=== PATIENT | male | born 1970 | race Caucasian/White ===

== ENCOUNTER 2020-11-20 15:30 | Inpatient (IN) | payer OTHER, SELFPAY ==
[2020-11-20] VITALS (7 sets, daily range): BP systolic 145–159; BP diastolic 84–108; PULSE 68–87; RESP 15–20; TEMP 36.4–37.1; O2SAT 96–97; BMI 27.1
--- NOTE | 2020-11-20 17:36 | USR_ITS ---
PROCEDURE INFORMATION: Exam: US Abdomen, Limited; Right Upper Quadrant Exam date and time: 11/20/2020 5:36 PM Age: 50 years old Clinical indication: Abdominal pain; Acute; Additional info: Gallstones TECHNIQUE: Imaging protocol: US abdomen. Real time ultrasound with image documentation. Limited exam focused on the right upper quadrant. COMPARISON: No relevant prior studies available. FINDINGS: Liver: Diffuse echogenic appearance of the liver consistent with hepatic steatosis. Gallbladder: Gallbladder wall thickening up to 0.9 cm with mild hyperemia and intraluminal sludge present. No shadowing gallstones appreciated. The common bile duct is borderline mildly dilated at 6 mm. Positive sonographic Swenson sign noted on exam. Common bile duct: See Gallbladder finding. Pancreas: Visualized pancreas is unremarkable. Right kidney: Normal. No mass. No hydronephrosis. US/US abdomen limited [id number] IMPRESSION: 1. Sonographic findings suspicious for acute cholecystitis. 2. Borderline mild dilation of common bile duct is 6 mm, potentially incidental but correlate with corresponding lab work. In the setting of suspected biliary obstruction could consider an MRCP to evaluate for choledocholithiasis. 3. Diffuse hepatic steatosis.
--- NOTE | 2020-11-20 17:37 | W.ED.ABDPA2 ---
HPI - Abdominal Pain General: Chief Complaint: Abdominal Pain Stated Complaint: RUQ ABD PAIN, RADIATING TO BACK Time Seen by Provider: 11/20/20 17:39 History of Present Illness: HPI narrative: This patient is a 50-year-old male who presents to the emergency department for 2 days worth of nausea and right upper quadrant abdominal pain. Patient states has been waxing and waning makes him sick to his stomach. Patient states the pain radiates to his right flank. Patient states the pain has been getting worse. Patient states he tried to have super to about 2 PM and made the pain even worse. Will do medical evaluation treat as needed MD elicited complaint: abdominal pain Pertinent past history: none Onset (ago): day(s) Pain Consistency: constant Location: RUQ Severity: moderate Quality: aching Radiation: RUQ and R flank Migration to: no migration Exacerbating factors: eating Relieving factors: nothing Associated Symptoms: Reports nausea; Denies chills, dysuria, fever(s) and vomiting Review of Systems General: Reports: 10 or more systems reviewed and unremarkable except in HPI and below Const: Denies: fever(s), chills, body aches or fatigue Eyes: Denies: change in vision or blurry vision ENMT: Denies: throat pain, hoarseness or mouth pain Card: Denies: chest pain, palpitations, irregular heart rhythm, edema, swelling of feet/ankles or lightheadedness Resp: Denies: dyspnea, productive cough, non-productive cough, wheezing or pain on inspiration GI: Reports: abdominal pain and nausea; Denies: vomiting : Denies: flank pain, dysuria, urinary frequency, urinary urgency or urinary hesitancy Musc: Denies: neck pain, back pain, extremity pain, extremity swelling, joint pain, joint swelling, joint redness, joint warmth or limited range of motion Skin/Breast: Denies: rash, pruritus, erythema or skin tenderness Neuro: Denies: headache(s), numbness in extremities or weakness in extremities Psych: Denies: anxiety or depression Physical Exam Const: COMMON NORMALS: no acute distress, average body habitus, patient oriented x3, no limitations, healthy appearing, alert and well nourished HENMT: COMMON NORMALS: normocephalic, atraumatic, hearing grossly normal bilaterally, external ears normal, EAC's normal, TM's normal bilaterally, Normal external nose present, Normal nasal mucous membranes and turbinates present, moist oral mucous membranes, oropharynx normal, dentition normal and gingiva normal HEAD & SCALP: normocephalic and atraumatic NOSE: Normal external nose present and Normal nasal mucous membranes and turbinates present EXTERNAL EAR: Yes external ears normal EXTERNAL AUDITORY CANAL: EAC's normal TYMPANIC MEMBRANE: TM's normal bilaterally Neck/C-Spine: COMMON NORMALS: full ROM, no lymphadenopathy, supple, no meningeal signs, no JVD, Thyroid normal and No carotid bruits THYROID: Thyroid normal Chest: COMMONS NORMALS: normal inspection of the chest, normal palpation of entire chest wall, normal inspection of the breasts and normal palpation of the breasts Breast/axilla inspection: Yes normal inspection of the breasts BREAST/AXILLA PALPATION: Yes normal palpation of the breasts Resp: COMMON NORMALS: normal respiratory effort, No retractions, No use of accessory muscles, clear to auscultation bilaterally and percussion normal AUSCULTATION: clear to auscultation bilaterally PERCUSSION: percussion normal Cardio: COMMON NORMALS: no JVD, regular rate, regular rhythm, S1 normal heart sound present, S2 normal heart sound present, No gallops present (Cardio), No clicks present (Cardio), No murmurs present (Cardio), No rub (Cardio) and Peripheral pulses 2+ throughout RATE: regular rate RHYTHM: regular rhythm HEART SOUNDS: S1 normal heart sound present and S2 normal heart sound present PERIPHERAL PULSES: Peripheral pulses 2+ throughout GI: COMMON NORMALS: Normal to inspection, nondistended, normoactive bowel sounds present, Soft to palpation, No hepatosplenomegaly present, no masses and no bruits PALPATION: Yes Soft to palpation, Yes Tenderness to palpation present (GI) Details: RUQ and Yes No hepatosplenomegaly present : COMMON NORMALS: Yes no CVA tenderness BLADDER/KIDNEY EXAM: Yes no CVA tenderness Back/Pelvis: COMMON NORMALS: no CVA tenderness, thoracic and lumbar spine normal to inspection, no thoracic nor lumbar tenderness, thoraco-lumbar ROM normal and straight leg raise negative bilaterally Extremity: COMMON NORMALS: normal to inspection, full ROM, capillary refill normal, no joint enlargement, no clubbing, cyanosis or edema, no calf tenderness and no pedal edema Neuro: COMMON NORMALS: patient oriented x3 SENSORIUM/ORIENTATION: Yes alert MENINGEAL SIGNS: Yes no meningeal signs Course Reevaluation(s): Reevaluation #1: I did discuss at length with patient about findings. And concerns. 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 States he is never had any issues with pancreatitis in the past. Patient is agreeable for admission Time: 20:55 Consultations: Consultation #1: I did discuss at length with Dr. Howe general surgeon. We did review patient's ultrasound. He believes this is related to pancreatitis not related to any acute cholecystitis. We will see patient as consult Time: 20:55 Consultation #2: I did discuss at length with hospitalist Dr. Jenkins she is agreed to accept the patient for admission. She will see patient write additional orders Time: 20:55 Vital Signs: Vital signs: Vital Signs Temperature 98.7 F 11/20/20 16:12 Pulse Rate 68 11/20/20 19:53 Respiratory Rate 15 11/20/20 19:53 Blood Pressure 149/84 11/20/20 19:53 Pulse Oximetry 97 11/20/20 19:53 MDM - Abdominal Pain MDM Narrative: Medical decision making narrative: This patient is a 50-year-old male who presents to the emergency department for 2 days worth of nausea and right upper quadrant abdominal pain. Patient states has been waxing and waning makes him sick to his stomach. Patient states the pain radiates to his right flank. Patient states the pain has been getting worse. Patient states he tried to have super to about 2 PM and made the pain even worse. I did discuss at length with patient about findings. And concerns. 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 States he is never had any issues with pancreatitis in the past. Patient is agreeable for admission I did discuss at length with Dr. Howe general surgeon. We did review patient's ultrasound. He believes this is related to pancreatitis not related to any acute cholecystitis. We will see patient as consult I did discuss at length with hospitalist Dr. Jenkins she is agreed to accept the patient for admission. She will see patient write additional orders Lab Data: Labs: Lab Results 11/20/20 11/20/20 11/20/20 Range/Units 18:02 18:02 19:06 WBC 11.3 H (4.0-10.0) 10^3/ uL RBC 5.35 H (4.1-5.3) 10^6/u L Hgb 15.6 (11.7-16.6) g/dL Hct 46.0 (42.0-52.0) % MCV 86.0 (80-94) fL MCH 29.2 (28.0-34.0) pg MCHC 33.9 (30.0-36.0) g/dL RDW 12.3 (12.1-15.1) % Plt Count 197 (130-400) 10^3/c mm MPV 11.3 H (7.4-10.4) fL Neut % (Auto) 82.2 % Lymph % (Auto) 7.7 % [place] % (Auto) 9.1 % Eos % (Auto) 0.4 % Baso % (Auto) 0.3 % Neut # (Auto) 9.26 H (1.8-7.7) 10^3/u L Lymph # (Auto) 0.9 (0.8-4.8) 10^3/u L [place] # (Auto) 1.0 H (0.2-0.9) 10^3/u L Eos # (Auto) 0.1 (0.0-0.8) 10^3/u L Baso # (Auto) 0.0 (0.0-0.1) 10^3/u L Nucleated RBC % (a uto) 0 % Nucleated RBCs # 0.0 /100WBC Sodium Cancelled 138 Potassium Cancelled 3.7 Chloride Cancelled 101 Carbon Dioxide Cancelled 28 Anion Gap Cancelled 12.7 BUN Cancelled 11 Creatinine Cancelled 0.6 L GFR Calculation Cancelled 143.2 H Glucose Cancelled 116 H Calculated Osmolal ity Cancelled 286 Calcium Cancelled 8.0 L Total Bilirubin Cancelled 3.1 H AST Cancelled 63 H ALT Cancelled 87 H Alkaline Phosphata se Cancelled 74 Total Protein Cancelled 6.3 L Albumin Cancelled 4.2 Globulin Cancelled 2.1 Lipase Cancelled > 3159 H Urine Color (Yellow) Urine Appearance (CLEAR) Urine pH (5-7) Ur Specific Gravit y (1.005-1.030) Urine Protein (Negative) Urine Glucose (UA) (Normal) Urine Ketones (Negative) Urine Blood (Negative) Urine Nitrate (Negative) Urine Bilirubin (Negative) Urine Urobilinogen (Negative) mg/dL Ur Leukocyte Kendra ase (Negative) Urine RBC (0-2) /hpf Urine WBC (0-5) /hpf Ur Squamous Epith Cells (0-5) /hpf Amorphous Sediment Urine Bacteria (NONE) /hpf 11/20/20 Range/Units 19:57 WBC (4.0-10.0) 10^3/ uL RBC (4.1-5.3) 10^6/u L Hgb (11.7-16.6) g/dL Hct (42.0-52.0) % MCV (80-94) fL MCH (28.0-34.0) pg MCHC (30.0-36.0) g/dL RDW (12.1-15.1) % Plt Count (130-400) 10^3/c mm MPV (7.4-10.4) fL Neut % (Auto) % Lymph % (Auto) % [place] % (Auto) % Eos % (Auto) % Baso % (Auto) % Neut # (Auto) (1.8-7.7) 10^3/u L Lymph # (Auto) (0.8-4.8) 10^3/u L [place] # (Auto) (0.2-0.9) 10^3/u L Eos # (Auto) (0.0-0.8) 10^3/u L Baso # (Auto) (0.0-0.1) 10^3/u L Nucleated RBC % (a uto) % Nucleated RBCs # /100WBC Sodium Potassium Chloride Carbon Dioxide Anion Gap BUN Creatinine GFR Calculation Glucose Calculated Osmolal ity Calcium Total Bilirubin AST ALT Alkaline Phosphata se Total Protein Albumin Globulin Lipase Urine Color Yolanda (Yellow) Urine Appearance Clear (CLEAR) Urine pH 5 (5-7) Ur Specific Gravit y 1.015 (1.005-1.030) Urine Protein Trace (Negative) Urine Glucose (UA) Trace H (Normal) Urine Ketones 1+ H (Negative) Urine Blood 2+ H (Negative) Urine Nitrate Negative (Negative) Urine Bilirubin 2+ H (Negative) Urine Urobilinogen 8 H (Negative) mg/dL Ur Leukocyte Kendra ase Negative (Negative) Urine RBC 0-4 H (0-2) /hpf Urine WBC None (0-5) /hpf Ur Squamous Epith Cells None (0-5) /hpf Amorphous Sediment Not Reportable Urine Bacteria None (NONE) /hpf Imaging Data ^: US: Attestation: I personally reviewed and interpreted this imaging study as follows: Radiologist's impression: MPRESSION: 1. Sonographic findings suspicious for acute cholecystitis. 2. Borderline mild dilation of common bile duct is 6 mm, potentially incidental but correlate with corresponding lab work. In the setting of suspected biliary obstruction could consider an MRCP to evaluate for choledocholithiasis. 3. Diffuse hepatic steatosis. Discharge Plan Discharge Patient Disposition: Admitted As Inpatient Clinical Impression: Acute pancreatitis, Right upper quadrant abdominal pain, History of alcohol abuse Condition: Stable Prescriptions: No Action One A Day Vitamin 1 tab PO DAILY RF: 0 Coding Level of Care Code ED Election Supervisor for Chg Fwd Exam Comprehensive
--- NOTE | 2020-11-20 17:45 | PC.NURSE ---
Patient reports pressure to upper abdomen and chest that started at 0300 on Thursday. Reports presence of nausea and vomiting. Reports spasming occurring about every 30 minutes. Rates pain as a 10 in the numeric pain scale.
[2020-11-20] MEDS: ketorolac 30 mg/mL INJ 15 MG IVP (18:09)
[2020-11-20] MEDS: ondansetron 2 mg/ML SDV 2 mL 4 MG IVP (18:09)
[2020-11-20] MEDS: sodium chloride 0.9% 1,000 ML 999 ML IV ×2 (18:10→21:34)
[2020-11-20 18:11] LABS: Basophils % 0.3 %; Eosinophils # 0.1 10^3/uL (0.0-0.8); Eosinophils % 0.4 %; Hemoglobin 15.6 g/dL (11.7-16.6); Lymphocytes # 0.9 10^3/uL (0.8-4.8); Lymphocytes % 7.7 %; Mean Corpuscular HGB Conc 33.9 g/dL (30.0-36.0); Mean Corpuscular Hemoglobin 29.2 pg (28.0-34.0); Mean Platelet Volume 11.3 fL (7.4-10.4); Monocytes % 9.1 %; Neutrophils # 9.26 10^3/uL (1.8-7.7); Neutrophils % 82.2 %; Nucleated Red Blood Cells % 0 %; Platelet Count 197 10^3/cmm (130-400); Red Blood Count 5.35 10^6/uL (4.1-5.3); Red Cell Distribution Width 12.3 % (12.1-15.1); White Blood Count 11.3 10^3/uL (4.0-10.0)
[2020-11-20 20:06] LABS: Glucose Urine UA Trace (Normal); Ketones Urine 1+ (Negative); Protein Urine Trace (Negative); Specific Gravity, Urine 1.015 (1.005-1.030); Urine Appearance Clear (CLEAR); Urine Color Amber (Yellow); pH Urine 5 (5-7)
[2020-11-20 20:07] LABS: Add Urine Microscopic? YES; Bilirubin Urine 2+ (Negative); Blood Urine 2+ (Negative); Leukocyte Esterase Urine Negative (Negative); Nitrate Urine Negative (Negative); Urobilinogen Urine 8 mg/dL (Negative)
[2020-11-20 20:09] LABS: Add Urine Culture? No; RBC Urine 0-4 /hpf (0-2)
[2020-11-20 20:28] LABS: Alanine Aminotransferase 87 U/L (0-41); Albumin Level 4.2 g/dL (3.5-5.2); Alkaline Phosphatase 74 IU/L (40-130); Anion Gap 12.7 (5-19); Aspartate Amino Transferase 63 U/L (0-40); Blood Urea Nitrogen 11 mg/dL (6-20); Carbon Dioxide 28 mmol/L (22-29); Chloride 101 mmol/L (98-107); Globulin 2.1 g/dL (1.3-4.6); Glomerular Filtration Rate 143.2 mL/min (90-130); Glucose 116 mg/dL (65-115); Osmolality Calculated 286 mOsm/kg (285-295); Potassium 3.7 mmol/L (3.5-5.1); Sodium 138 mmol/L (136-145); Total Bilirubin 3.1 mg/dL (0.15-1.2); Total Protein 6.3 g/dL (6.6-8.7)
[2020-11-20 21:30] LABS: Lactic Sepsis W/Reflex 0.5 mmol/L (0.5-2.2)
[2020-11-20] MEDS: morphine 4 mg/mL SDV 1 mL IVP (21:34)
[2020-11-20 21:37] LABS: Alcohol Level < 10 mg/dL (0-10)
[2020-11-20] MEDS: piperacillin-tazobactam 3.375 GM in sodium chloride 0.9% (plus) 50 ML IV (21:38)
--- NOTE | 2020-11-20 22:08 | PM.HP ---
Providers/Chief Complaint Admitting Physician: Cathryn Harrison MD Primary Care Provider: None Chief Complaint: RUQ ABD PAIN, RADIATING TO BACK History of Present Illness Mic Mueller is a 50 year old male who presented to the emergency room with chief complaint of upper abdomen and lower chest pain. He woke up around 3 AM on Thursday morning with a pressure sensation in the center of his abdomen. He had some nausea and an episode of vomiting associated with this. He was able to go back to sleep and went to work later that day though his belly continued to bother him. When he was at work he had some significant cramping in his central abdomen that was severe and radiated into his back. He again had some nausea and vomiting. Symptoms seemed worse after food even though he tried to eat things like oatmeal, bread and later followed by soup and water. He began having episodes of abdominal cramping that were even more severe and began to go up into his lower rib cage area. When these episodes hit he was unable to stand or even walk due to the severity of the pain. Symptoms would last 20 to 30 minutes at a time and then he would feel okay for a while. 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 With the recurrence of his symptoms he did eventually come in for evaluation. He has not had any vomiting today but has continued to be nauseated. Denies any fever. On arrival to the emergency room [place], heart rate in the 80s and blood pressure 140s over 100s. Laboratory studies revealed an elevated lipase and elevated liver enzymes. Abdominal ultrasound was done revealing sonographic findings suspicious for acute cholecystitis. Borderline mild dilatation of the common bile duct at 6 mm was noted as was diffuse hepatic steatosis. No shadowing gallstones were appreciated. He received fluids and pain medications in the emergency room and is being admitted for further treatment. He has never had an episode of known cholecystitis or pancreatitis nor symptoms such as he had today before. His father was an alcoholic but no known family history of pancreatitis. He takes some vitamins and occasionally NSAIDs but no chronic prescription medications. He does drink usually 3-4 times a week up to a sixpack of beer. Last drink was Thursday when he had 2 beers per his description. Review of Systems Const: Denies: fever(s), chills or change in appetite Eyes: Denies: change in vision ENMT: Denies: throat pain or nasal congestion Card: Reports: chest pain (with episodes of abdominal pain); Denies: palpitations Resp: Reports: dyspnea (with abdominal pain); Denies: productive cough or non-productive cough GI: Reports: abdominal pain, nausea and vomiting; Denies: diarrhea, constipation or melena : Denies: difficulty urinating Musc: Reports: back pain (with abd pain) Skin/Breast: Denies: rash or sores Neuro: Denies: headache(s), lack of coordination or difficulty communicating thoughts Psych: Denies: anxiety or depression Jean-Claude/Lymph: Denies: easy bruising or easy bleeding Medications/Allergies Home Medications Medication Instructions Recorded Confirmed Last Taken Type One A Day Vitamin 1 tab PO DAILY 11/20/20 11/20/20 11/20/20 History Allergies Allergy/AdvReac Type Severity Reaction Status Date / Time No Known Allergies Allergy Unverified 11/20/20 18:32 PFSH Acute PFSH: Medical History (Updated 11/20/20 @ 23:03 by Cathryn Harrison MD) Former smoker History of lower leg fracture Surgical History (Updated 11/20/20 @ 22:13 by Cathryn Harrison MD) No pertinent past surgical history Family History (Updated 11/20/20 @ 22:28 by Cathryn Harrison MD) Father Sickle cell trait Alcoholism Social History (Updated 11/21/20 @ 00:04 by Cathryn Harrison MD) Smoking and tobacco status: former smoker Alcohol intake: current Alcohol intake frequency: few times a week Alcohol use comment: 4-6 beers, up to 3-4 times per week Substance/Drug Use: never Current occupational status: employed 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 Vitals/I&O/Wt Last Vital Signs Temp 98.7 F 11/20/20 16:12 Pulse 68 11/20/20 19:53 Resp 16 11/20/20 21:34 BP 149/84 11/20/20 19:53 Pulse Ox 96 11/20/20 21:34 11/20/20 11/20/20 11/20/20 06:59 14:59 22:59 Intake Total 1000 / 1000 Balance 1000 / 1000 Weight last 48 hrs Weight 90.718 kg Physical Exam Narrative: EXAM NARRATIVE: Constitutional: Awake and alert, cooperative HEENT: Normocephalic, atraumatic, pupils are equally reactive, no nystagmus, dry membranes Neck: Supple Respiratory: Clear to auscultation bilaterally Cardiovascular: Regular rhythm, no murmurs, 2+ pulses Abdomen: Soft, epigastric and bilateral upper quadrant tenderness without any rebound or guarding, positive bowel sounds Extremities: No pitting edema Skin: Evidence of sun exposure but no acute rashes or bruises noted Neuro: Speech clear, face symmetric, moves all extremities, no tremors or abnormal movements Psych: Normal affect, oriented x3 Data : 11/20/20 18:02 11/20/20 19:06 Micro: Microbiology 11/20/20 21:07 Blood Culture - Preliminary Blood SPECIMEN COLLECTED 11/20/20 21:05 Blood Culture - Preliminary Blood SPECIMEN COLLECTED Other data: Laboratory Results WBC 11.3 10^3/uL (4.0-10.0) H 11/20/20 18:02 RBC 5.35 10^6/uL (4.1-5.3) H 11/20/20 18:02 Hgb 15.6 g/dL (11.7-16.6) 11/20/20 18:02 Hct 46.0 % (42.0-52.0) 11/20/20 18:02 MCV 86.0 fL (80-94) 11/20/20 18:02 MCH 29.2 pg (28.0-34.0) 11/20/20 18:02 MCHC 33.9 g/dL (30.0-36.0) 11/20/20 18:02 RDW 12.3 % (12.1-15.1) 11/20/20 18:02 Plt Count 197 10^3/cmm (130-400) 11/20/20 18:02 MPV 11.3 fL (7.4-10.4) H 11/20/20 18:02 Neut % (Auto) 82.2 % 11/20/20 18:02 Lymph % (Auto) 7.7 % 11/20/20 18:02 [place] % (Auto) 9.1 % 11/20/20 18:02 Eos % (Auto) 0.4 % 11/20/20 18:02 Baso % (Auto) 0.3 % 11/20/20 18:02 Neut # (Auto) 9.26 10^3/uL (1.8-7.7) H 11/20/20 18:02 Lymph # (Auto) 0.9 10^3/uL (0.8-4.8) 11/20/20 18:02 [place] # (Auto) 1.0 10^3/uL (0.2-0.9) H 11/20/20 18:02 Eos # (Auto) 0.1 10^3/uL (0.0-0.8) 11/20/20 18:02 Baso # (Auto) 0.0 10^3/uL (0.0-0.1) 11/20/20 18:02 Nucleated RBC % (auto) 0 % 11/20/20 18:02 Nucleated RBCs # 0.0 /100WBC 11/20/20 18:02 Sodium 138 mmol/L (136-145) 11/20/20 19:06 Potassium 3.7 mmol/L (3.5-5.1) 11/20/20 19:06 Chloride 101 mmol/L (98-107) 11/20/20 19:06 Carbon Dioxide 28 mmol/L (22-29) 11/20/20 19:06 Anion Gap 12.7 (5-19) 11/20/20 19:06 BUN 11 mg/dL (6-20) 11/20/20 19:06 Creatinine 0.6 mg/dL (0.7-1.2) L 11/20/20 19:06 GFR Calculation 143.2 mL/min (90-130) H 11/20/20 19:06 Glucose 116 mg/dL (65-115) H 11/20/20 19:06 Calculated Osmolality 286 mOsm/kg (285-295) 11/20/20 19:06 Lactic Acid 0.5 mmol/L (0.5-2.2) 11/20/20 21:05 Calcium 8.0 mg/dL (8.5-10.5) L 11/20/20 19:06 Total Bilirubin 3.1 mg/dL (0.15-1.2) H 11/20/20 19:06 AST 63 U/L (0-40) H 11/20/20 19:06 ALT 87 U/L (0-41) H 11/20/20 19:06 Alkaline Phosphatase 74 IU/L (40-130) 11/20/20 19:06 Total Protein 6.3 g/dL (6.6-8.7) L 11/20/20 19:06 Albumin 4.2 g/dL (3.5-5.2) 11/20/20 19:06 Globulin 2.1 g/dL (1.3-4.6) 11/20/20 19:06 Lipase > 3159 U/L (13-60) H 11/20/20 19:06 Urine Color Yolanda (Yellow) 11/20/20 19:57 Urine Appearance Clear (CLEAR) 11/20/20 19:57 Urine pH 5 (5-7) 11/20/20 19:57 Ur Specific [place] 1.015 (1.005-1.030) 11/20/20 19:57 Urine Protein Trace (Negative) 11/20/20 19:57 Urine Glucose (UA) Trace (Normal) H 11/20/20 19:57 Urine Ketones 1+ (Negative) H 11/20/20 19:57 Urine Blood 2+ (Negative) H 11/20/20 19:57 Urine Nitrate Negative (Negative) 11/20/20 19:57 Urine Bilirubin 2+ (Negative) H 11/20/20 19:57 Urine Urobilinogen 8 mg/dL (Negative) H 11/20/20 19:57 Ur Leukocyte Esterase Negative (Negative) 11/20/20 19:57 Urine RBC 0-4 /hpf (0-2) H 11/20/20 19:57 Urine WBC None /hpf (0-5) 11/20/20 19:57 Ur Squamous Epith Cells None /hpf (0-5) 11/20/20 19:57 Amorphous Sediment Not Reportable 11/20/20 19:57 Urine Bacteria None /hpf (NONE) 11/20/20 19:57 Ethyl Alcohol < 10 mg/dL (0-10) 11/20/20 21:05 Impressions Abdomen Ultrasound 11/20/20 17:36 IMPRESSION: 1. Sonographic findings suspicious for acute cholecystitis. 2. Borderline mild dilation of common bile duct is 6 mm, potentially incidental but correlate with corresponding lab work. In the setting of suspected biliary obstruction could consider an MRCP to evaluate for choledocholithiasis. 3. Diffuse hepatic steatosis. A&P Assessment and plan (1) Acute pancreatitis: Etiology most likely acute cholecystitis with potential early obstructive process or chronic alcohol use based on currently available information. Peptic ulcer disease, medication/drug effect, infection, malignancy, acute vascular process, among others, currently less likely . Status: Acute (2) Acute cholecystitis: Without evidence of definitively obstructing stones on ultrasuond, though borderline common bile duct diameter noted Status: Acute Additional A&P Information No prior history of pancreatitis or gallbladder colic symptoms described. Drinks beer several times a week but does not describe more excessive use. Inpatient admission IV fluids Check lactic acid, blood cultures and alcohol level Keep n.p.o. tonight except for sips and chips this evening Recheck LFTs, white blood count, lactic acid and lipase in the morning If trend upward consider further diagnostic evaluation Monitor for worsening abdominal symptoms Dr. Howe was consulted from the emergency room We will give banana bag x1 Monitor for any evidence of alcohol withdrawal though patient denies history of such Check hemoglobin A1c Protonix Pain control Laxative therapy Lovenox for DVT prophylaxis Discussed with patient findings, concerns and plans and he was given an opportunity to ask questions Does not have provider he can follow-up with for hospital follow-up locally; will have social and human services assistant see Full code Attestations Medical Necessity Statement*: Anticipated stay greater than two midnights in this patient presenting with his first episode of pancreatitis as well as cholecystitis. Significant elevation in lipase as well as elevation in bilirubin. Requiring IV fluids, serial labs and monitoring for progressive symptoms. Plans as indicated. Coding Level of Care Code Acute Hand Method Lasting Machine Operator for Kiesha Chan Diagnoses Acute pancreatitis K85.90 Acute cholecystitis K81.0
[2020-11-21] VITALS (11 sets, daily range): BP systolic 126–156; BP diastolic 70–86; PULSE 66–75; RESP 16–18; TEMP 36.6–37.2; O2SAT 93–97
[2020-11-21] MEDS: pantoprazole 40 mg SDV IVP ×2 (01:00→10:50)
[2020-11-21] MEDS: sodium chlor 0.9% + KCl 20 mEq 20 MEQ/1,000 ML BAG 150 MEQ IV ×3 (01:00→18:28)
[2020-11-21] MEDS: enoxaparin 40 mg/0.4 mL Syringe SUBCUT (01:00)
[2020-11-21] MEDS: folic acid 1 MG, multivitamin inj 10 ML, thiamine 100 MG in sodium chloride 0.9% 1,000 ML 252.8 MG IV (01:43)
[2020-11-21] MEDS: acetaminophen 325 mg Tablet 650 MG PO ×2 (01:58→18:38)
[2020-11-21] MEDS: morphine 4 mg/mL SDV 1 mL IVP ×5 (02:20→20:50)
[2020-11-21 06:13] LABS: Basophils % 0.4 %; Eosinophils # 0.1 10^3/uL (0.0-0.8); Eosinophils % 0.8 %; Hematocrit 37.7 % (42.0-52.0); Hemoglobin 12.8 g/dL (11.7-16.6); Lymphocytes # 1.1 10^3/uL (0.8-4.8); Lymphocytes % 12.5 %; Mean Corpuscular Volume 85.5 fL (80-94); Monocytes # 0.8 10^3/uL (0.2-0.9); Monocytes % 9.5 %; Neutrophils # 6.42 10^3/uL (1.8-7.7); Neutrophils % 76.6 %; Nucleated Red Blood Cells % 0 %; Platelet Count 147 10^3/cmm (130-400); Red Blood Count 4.41 10^6/uL (4.1-5.3); Red Cell Distribution Width 12.1 % (12.1-15.1); White Blood Count 8.4 10^3/uL (4.0-10.0)
[2020-11-21 06:24] LABS: INR 1.11 (0.8-1.2)
[2020-11-21 06:28] LABS: Lactate (Lactic Acid level) 0.5 mmol/L (0.5-2.2)
[2020-11-21 06:29] LABS: Estmated Average Glucose 91; Hemoglobin A1C 4.8 % (4.0-6.0)
[2020-11-21 06:31] LABS: Alanine Aminotransferase 98 U/L (0-41); Albumin Level 3.7 g/dL (3.5-5.2); Alkaline Phosphatase 70 IU/L (40-130); Anion Gap 11.9 (5-19); Aspartate Amino Transferase 64 U/L (0-40); Blood Urea Nitrogen 8 mg/dL (6-20); Calcium 7.6 mg/dL (8.5-10.5); Carbon Dioxide 25 mmol/L (22-29); Chloride 108 mmol/L (98-107); Chol HDL Ratio 3.23 mg/dL (1.0-5.00); Cholesterol 155 mg/dL (0-200); Glomerular Filtration Rate 176.7 mL/min (90-130); Glucose 98 mg/dL (65-115); HDL Cholesterol 48 mg/dL (60-100); LDL Cholesterol Calculated 93 mg/dL (50-129); LDL HDL Ratio 1.94 RATIO (0.00-3.22); Osmolality Calculated 290 mOsm/kg (285-295); Potassium 3.9 mmol/L (3.5-5.1); Sodium 141 mmol/L (136-145); Total Bilirubin 3.9 mg/dL (0.15-1.2); Total Protein 5.7 g/dL (6.6-8.7); Triglycerides 68 mg/dL (0-150)
[2020-11-21 06:32] LABS: Magnesium 2.1 mg/dL (1.7-2.3); Phosphorus 2.9 mg/dL (2.5-4.5)
[2020-11-21] MEDS: docusate sodium 100 mg Capsule PO ×2 (08:17→18:27)
--- NOTE | 2020-11-21 10:53 | MR_ITS ---
WS: [id number] MRCP (MAGNETIC RESONANCE CHOLANGIOPANCREATOGRAPHY) HISTORY: pancreatitis, cholecystitis, possible choledocholithiasis COMPARISON: Ultrasound 11/20/2020 TECHNIQUE: Multiple sequences are performed to evaluate the intra and extrahepatic ducts. Very slight dilatation of the common bile duct to 8 mm. CBD is dilated but no obstructing stone or pa ncreatic head mass identified. The gallbladder is normally distended. There is a small amount of flui d and mild wall thickening involving the gallbladder. No inflammation around the pancreas. Pancreatic duct is normal at 2 mm. There is a small amount of increased fluid surrounding the duodenal C-loop a nd extending posterior to the pancreas. No pleural effusion. MR/MR MRCP [id number] IMPRESSION: 1. Mildly dilated common bile duct. No choledocholithiasis or pancreatic head mass identified. 2. Mild gallbladder wall thickening and a small amount of edema adjacent to th e gallbladder and the duodenum. Consider acute cholecystitis as a possible etio logy. No intrahepatic duct dilatation.
--- NOTE | 2020-11-21 11:06 | P.PN_ITS ---
Subjective Subjective: Interval history: He is doing slightly better. Still having epigastric pain, but received pain medication and now is having some relief. Denies any vomiting. Vitals/I&O/Wt Last Vital Signs Temp 98.4 F 11/21/20 07:29 Pulse 74 11/21/20 07:29 Resp 18 11/21/20 10:14 BP 126/70 11/21/20 07:29 Pulse Ox 94 11/21/20 07:29 11/20/20 11/21/20 11/21/20 22:59 06:59 14:59 Intake Total 1000 / 1000 2061.2 / 3061.2 1700 / 1700 Output Total 650 / 650 Balance 1000 / 1000 2061.2 / 3061.2 1050 / 1050 Weight last 48 hrs Weight 90.718 kg Physical Exam Const: COMMON NORMALS: no acute distress and patient oriented x3 HENMT: COMMON NORMALS: oropharynx normal Neck/C-Spine: COMMON NORMALS: no JVD Resp: COMMON NORMALS: normal respiratory effort and clear to auscultation bilaterally AUSCULTATION: clear to auscultation bilaterally Cardio: COMMON NORMALS: no JVD, regular rhythm, S1 normal heart sound present, S2 normal heart sound present and No murmurs present (Cardio) RHYTHM: regular rhythm HEART SOUNDS: S1 normal heart sound present and S2 normal heart sound present GI: COMMON NORMALS: Normal to inspection, nondistended, normoactive bowel sounds present and Soft to palpation PALPATION: Yes Soft to palpation and Yes Tenderness to palpation present (GI) (epigastric) Extremity: COMMON NORMALS: no joint enlargement and no pedal edema Neuro: COMMON NORMALS: patient oriented x3 and moves all extremities Skin: COMMON NORMALS: no rashes or lesions noted GENERAL SKIN EXAM: no rashes or lesions noted Data : 11/21/20 05:48 11/21/20 05:48 Micro: Microbiology 11/20/20 21:07 Blood Culture - Preliminary Blood SPECIMEN COLLECTED 11/20/20 21:05 Blood Culture - Preliminary Blood SPECIMEN COLLECTED A&P Assessment and plan (1) Acute pancreatitis: With borderline dilation of CBD 6 mm, glucose tests could not be excluded. Discussed with him options for additional evaluation. Discussed risks of gallstone pancreatitis, choledocholithiasis. He is agreeable for additional as sessment by MRCP. Ordered. Discussed alternatively possibly alcohol induced pancreatitis. Given he still having epigastric pain, continue bowel rest for now. IV hydration. PPI. Status: Acute (2) Acute cholecystitis: Additional assessment by MRCP as above. Rocephin. Bowel rest. Thickened GB wall. Sludge. Consideration of definitive treatment and timing discussed. We will touch base with surgery with regards to plans. Status: Acute Attestations Medical Necessity Statement*: Continue admission for assessment of management of acute pancreatitis, acute cholecystitis. 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
[2020-11-21] MEDS: cefTRIAXone 1,000 MG in sodium chloride 0.9% (plus) 50 ML 100 MG IV (16:18)
--- NOTE | 2020-11-21 18:05 | P.CONIM_ITS ---
Providers/Reason For Consult Consulting Physician/Specialty*: General Surgery Dr. Howe Reason for Consult*: Cholecystitis Attending Physician: Christ Murphy History of Present Illness History of Present Illness Mic Mueller is a 50 year old male who presented to the ER yesterday evening with complaints of upper abdominal and lower chest pain. 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 Patient had nausea but denies any vomiting. Over the course of the next 24 hours his symptoms progressively got worse. He denies any constipation or diarrhea. No similar episodes in the past. No fevers or chills. He was noted to have elevated lipase and ultrasound findings concerning for acute cholecystitis. Patient states that he used to be heavy drinker when he was younger but now he drinks a sixpack 3-4 times a week. Review of Systems General: Reports: 10 or more systems reviewed and unremarkable except in HPI and below Meds/Allergies Home Medications and Allergies Home Medications Medication Instructions Recorded Confirmed Last Taken Type One A Day Vitamin 1 tab PO DAILY 11/20/20 11/20/20 11/20/20 History Allergies Allergy/AdvReac Type Severity Reaction Status Date / Time No Known Allergies Allergy Unverified 11/20/20 18:32 Current Medications Current Medications Generic Name Dose Route Start Last Admin Trade Name Freq PRN Reason Stop Dose Admin Acetaminophen 650 mg 11/21/20 00:16 11/21/20 01:58 Acetaminophen 325 Mg Tablet PO 650 mg Q8H PRN Administration Mild/Mod Pain Or Temp >/= 101 Docusate Sodium 100 mg 11/21/20 09:00 11/21/20 08:17 Docusate Sodium 100 Mg Capsule PO 100 mg BID LIV Administration Enoxaparin Sodium 40 mg 11/21/20 00:30 11/21/20 01:00 Enoxaparin 40 Mg/0.4 Ml Syringe SUBCUT 40 mg Q24H LIV Administration Potassium Chloride/Sodium Chloride 20 meq in 1,000 mls @ 150 mls/hr 11/21/20 00:30 11/21/20 10:50 Sodium Chlor 0.9% + Kcl 20 Meq IV 150 mls/hr .Q6H40M LIV Administration Ceftriaxone Sodium 1,000 mg/ 50 mls @ 100 mls/hr 11/21/20 11:15 11/21/20 16:18 Sodium Chloride IV 100 mls/hr Q24H LIV Administration Protocol Morphine Sulfate 4 mg 11/20/20 20:57 11/21/20 16:22 Morphine 4 Mg/Ml Sdv 1 Ml IVP 4 mg Q4H PRN Administration SEVERE PAIN Pantoprazole Sodium 40 mg 11/21/20 00:15 11/21/20 10:50 Pantoprazole 40 Mg Sdv IVP 40 mg Q12H LIV Administration PFSH Acute PFSH: Medical History History of lower leg fracture Surgical History No pertinent past surgical history Family History Father Sickle cell trait Alcoholism Social History Smoking and tobacco status: former smoker Alcohol intake: current Alcohol intake frequency: few times a week Alcohol use comment: 4-6 beers, up to 3-4 times per week Substance/Drug Use: never Current occupational status: employed 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 Vitals/I&O/Wt Last Vital Signs Temp 99.0 F 11/21/20 15:30 Pulse 72 11/21/20 15:30 Resp 16 11/21/20 16:22 BP 145/85 11/21/20 15:30 Pulse Ox 94 11/21/20 15:30 11/21/20 11/21/20 11/21/20 06:59 14:59 22:59 Intake Total 2061.2 / 3061.2 1700 / 1730 30 / 1730 Output Total 650 / 650 Balance 2061.2 / 3061.2 1050 / 1080 30 / 1080 Weight last 48 hrs Weight 200 lb Physical Exam Narrative: EXAM NARRATIVE: HEENT: Normocephalic Eye: Sclera /conjunctiva normal Abdomen: Soft to palpation, mildly tender in the epigastric region, no guarding or rigidity Neurological: Oriented to place person and time Skin: Intact, no lesions appreciated on gross exam Data Micro: Micro: Microbiology 11/20/20 21:07 Blood Culture - Pr eliminary Blood SPECIMEN KAREEM MILAGROS 11/20/20 21:05 Blood Culture - Pr eliminary Blood SPECIMEN [facility] MIL[facility] A&P Assessment and plan (1) Acute cholecystitis: 50-year-old male who presents with abdominal pain with ultrasound showing findings suggestive of acute cholecystitis.Patient has not had any problems with high fat diet in the past though he generally eats healthy. Given his elevated bilirubin and ultrasound findings we will plan for HIDA scan with ejection fraction tomorrow Status: Acute (2) Acute pancreatitis: Patient has a history of drinking beers on used to be heavy drinker many years ago in his younger days. No prior episodes of pancreatitis in the past. His lipase is trending down. MRCP showed mild duct dilatation but no choledocholithiasis. I explained to the patient the pancreatitis most commonly is from cholelithiasis or alcohol consumption. In his case it will be hard to identify the source Clear liquid diet, n.p.o. 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
[2020-11-21] MEDS: sennosides 8.6 mg Tablet 17.2 MG PO (20:47)
[2020-11-22] VITALS (8 sets, daily range): BP systolic 135–164; BP diastolic 81–93; PULSE 70–92; RESP 14–18; TEMP 36.7–37.8; O2SAT 95–97
[2020-11-22] MEDS: pantoprazole 40 mg SDV IVP ×2 (01:03→12:14)
[2020-11-22] MEDS: enoxaparin 40 mg/0.4 mL Syringe SUBCUT (01:03)
[2020-11-22] MEDS: sodium chlor 0.9% + KCl 20 mEq 20 MEQ/1,000 ML BAG 150 MEQ IV ×3 (02:16→17:52)
[2020-11-22] MEDS: LORazepam 1 mg Tablet PO (02:20)
[2020-11-22 06:46] LABS: Basophils % 0.2 %; Eosinophils # 0.1 10^3/uL (0.0-0.8); Hematocrit 40.8 % (42.0-52.0); Hemoglobin 13.8 g/dL (11.7-16.6); Lymphocytes # 0.7 10^3/uL (0.8-4.8); Lymphocytes % 6.7 %; Mean Corpuscular HGB Conc 33.8 g/dL (30.0-36.0); Mean Corpuscular Hemoglobin 28.8 pg (28.0-34.0); Mean Platelet Volume 11.4 fL (7.4-10.4); Monocytes # 1.2 10^3/uL (0.2-0.9); Monocytes % 11.3 %; Neutrophils # 8.37 10^3/uL (1.8-7.7); Neutrophils % 80.5 %; Nucleated Red Blood Cells % 0 %; Platelet Count 156 10^3/cmm (130-400); White Blood Count 10.4 10^3/uL (4.0-10.0)
[2020-11-22 07:06] LABS: Alanine Aminotransferase 181 U/L (0-41); Albumin Level 4.1 g/dL (3.5-5.2); Alkaline Phosphatase 96 IU/L (40-130); Anion Gap 15.9 (5-19); Aspartate Amino Transferase 98 U/L (0-40); Blood Urea Nitrogen 5 mg/dL (6-20); Calcium 8.8 mg/dL (8.5-10.5); Carbon Dioxide 23 mmol/L (22-29); Chloride 103 mmol/L (98-107); Globulin 2.3 g/dL (1.3-4.6); Glomerular Filtration Rate 228.6 mL/min (90-130); Glucose 112 mg/dL (65-115); Osmolality Calculated 284 mOsm/kg (285-295); Potassium 3.9 mmol/L (3.5-5.1); Sodium 138 mmol/L (136-145); Total Protein 6.4 g/dL (6.6-8.7)
[2020-11-22 07:19] LABS: Lipase 1201 U/L (13-60)
[2020-11-22] MEDS: morphine 4 mg/mL SDV 1 mL IVP ×2 (08:54→20:25)
[2020-11-22] MEDS: docusate sodium 100 mg Capsule PO ×2 (08:54→17:52)
[2020-11-22 11:22] LABS: Gamma Glutamyl Transferase 242 U/L (8-61)
[2020-11-22 11:35] LABS: Hepatitis A Antibody IgM Non-Reactive (Nonreactive); Hepatitis B Core IgM Non-Reactive (Nonreactive); Hepatitis B Surface Antigen Non-Reactive (Nonreactive); Hepatitis C Virus Antibody Non-Reactive (Nonreactive)
[2020-11-22] MEDS: cefTRIAXone 1,000 MG in sodium chloride 0.9% (plus) 50 ML 100 MG IV (16:05)
--- NOTE | 2020-11-22 17:32 | NM_ITS ---
NOTE: Report was unsigned for reason: Order was edited. Original Signature date and time was: 11/22/20 @ 0848 WS: [id number] NUCLEAR MEDICINE HIDA SCAN HISTORY: acute cholecystitis COMPARISON: Ultrasound 11/20/2020 TECHNIQUE: The patient was intravenously injected with 6.1 mCi of TC99m Mebrofenin. Immediate imaging over the right upper quadrant was followed by 5 minute image and additional images for a total of 120 minutes. Normal uptake of radiotracer throughout the liver. 120 minutes no activity is identified within the gallbladder, common bile duct or small bowel. Uptake in the liver at 120 minutes is similar to 5 minute image. MTDD NM/NM hepatobiliary w phar* [id number] IMPRESSION: 1. Abnormal HIDA scan. 2. There is no excretion from the liver. Findings suggest high-grade common bi le duct obstruction. Acute hepatitis may appear similar. 3. Gallbladder not identified. Cystic and common bile duct obstruction should be considered.
--- NOTE | 2020-11-22 18:24 | P.PN_ITS ---
Subjective Subjective: Interval history: Patient is started on a clear liquid diet but he developed abdominal pain. His MRCP yesterday did not any evidence of obstruction. Patient had a HIDA scan which showed complete lack of emptying of liver Vitals/I&O/Wt Last Vital Signs Temp 99.7 F H 11/22/20 15:20 Pulse 92 11/22/20 15:20 Resp 18 11/22/20 15:20 BP 135/86 11/22/20 15:20 Pulse Ox 96 11/22/20 15:20 11/22/20 11/22/20 11/22/20 06:59 14:59 22:59 Intake Total 1000 / 4260 1000 / 1895 895 / 1895 Balance 1000 / 3610 1000 / 1895 895 / 1895 Physical Exam Narrative: EXAM NARRATIVE: Abdomen : Soft, nondistended, normally tender Data : 11/22/20 05:55 11/22/20 05:55 Micro: Microbiology 11/20/20 21:07 Blood Culture - Preliminary Blood Gram positive sharmin 11/20/20 21:05 Blood Culture - Preliminary Blood NEGATIVE TO DATE A&P Assessment and plan (1) Acute cholecystitis: 50-year-old male who presents with abdominal pain with ultrasound showing findings suggestive of acute cholecystitis.Patient has not had any problems with high fat diet in the past though he generally eats healthy. At this point his HIDA scan findings and elevated liver enzymes are the concern. We will therefore hold off on any surgical options at this point Status: Acute (2) Acute pancreatitis: Patient has a history of drinking beers on used to be heavy drinker many years ago in his younger days. No prior episodes of pancreatitis in the past. His lipase is trending down. MRCP showed mild duct dilatation but no choledocholithiasis. 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
[2020-11-22 19:41] LABS: Ferritin 872 ng/mL (30-400); Lactate Dehydrogenase 318 U/L (135-225)
--- NOTE | 2020-11-22 19:55 | PM.PN ---
Subjective Subjective: Interval history: Persistent pain after abdomen/epigastric, earlier slight pain on the right side. Radiated towards epigastrium later in the morning. During my visit after pain medication pain resolved. Discussed in detail with him and his so far not entirely clear results as to the exact etiology of his symptoms, requiring additional evaluation. Noted mild CBD dilation on ultrasonography. No choledocholithiasis noted on MRCP. Mild CBD dilation. Pancreatic duct normal. Gallbladder wall thickening, small amount of edema adjacent to gallbladder and duodenum, extending posterior to pancreas. With reports to consider cholecystitis. No intrahepatic duct dilation. HIDA scan obtained this morning also discussed with both of them, with no excretion of bile from the liver. As per discussion with radiology, surgery, findings suggestive of hepatitis. However, also cannot entirely exclude stricture at sphincter of Oddi, although again seems less likely given normal pancreatic duct, only mild dilation of CBD. Discussed unconjugated hyperbilirubinemia and T bili with worsening today. Mild worsening of transaminitis. Still progress in terms of improvement of lipase. Additional investigations. Low-grade fever. Discussed investigations also continued empiric ceftriaxone. Continued IV hydration, symptomatic treatment also with regards to pancreatitis, monitoring of liver parameters, lipase. He is agreeable to continue with assessment and treatment. We also discussed and he is agreeable and understands that in case we are not finding given the cause of his symptoms, I and especially in case of worsening liver dysfunction, additional assessment may need to be considered, possibly at outside facility with consideration of GI assessment, possible liver biopsy, possibly ERCP. Vitals/I&O/Wt Last Vital Signs Temp 99.7 F H 11/22/20 15:20 Pulse 92 11/22/20 15:20 Resp 18 11/22/20 15:20 BP 135/86 11/22/20 15:20 Pulse Ox 96 11/22/20 15:20 11/22/20 11/22/20 11/22/20 06:59 14:59 22:59 Intake Total 1000 / 4260 1000 / 1000 895 / 1895 Balance 1000 / 3610 1000 / 1000 895 / 1895 Physical Exam Const: COMMON NORMALS: no acute distress and patient oriented x3 HENMT: COMMON NORMALS: oropharynx normal Neck/C-Spine: COMMON NORMALS: no JVD Resp: COMMON NORMALS: normal respiratory effort and clear to auscultation bilaterally AUSCULTATION: clear to auscultation bilaterally Cardio: COMMON NORMALS: no JVD, regular rhythm, S1 normal heart sound present, S2 normal heart sound present and No murmurs present (Cardio) RHYTHM: regular rhythm HEART SOUNDS: S1 normal heart sound present and S2 normal heart sound present GI: COMMON NORMALS: Normal to inspection, nondistended, normoactive bowel sounds present and Soft to palpation PALPATION: Yes Soft to palpation and Yes Tenderness to palpation present (GI) (epigastric) Extremity: COMMON NORMALS: no joint enlargement and no pedal edema Neuro: COMMON NORMALS: patient oriented x3 and moves all extremities Skin: COMMON NORMALS: no rashes or lesions noted GENERAL SKIN EXAM: no rashes or lesions noted Data : 11/22/20 05:55 11/22/20 05:55 Micro: Microbiology 11/20/20 21:07 Blood Culture - Preliminary Blood Gram positive sharmin 11/20/20 21:05 Blood Culture - Preliminary Blood NEGATIVE TO DATE A&P Assessment and plan (1) Acute cholecystitis: Suggested possible acute cholecystitis, however, per discussion with radiology, with findings on HIDA scan, suggestion is more likely of acute hepatitis. Noted transaminitis worsening today. Alk phos remains normal. Did check GGT, this appears to be worse. T bili today up to 8. Majority unconjugated. Does not appear to have hemolysis. As per discussion with him his requested also hepatitis panel. This appears to be negative. Requested autoimmune studies including PIERCE, AMA. Prescription with radiology appearance is not of PSC, PBC. Requested ferritin. Low-grade temp today 100. Noted gram-positive sharmin in 1/4 bottles in blood culture. Unclear if possible contaminant, however, with fever, unclear etiology of symptomatology, repeat blood culture. Currently not septic. Check INR. Recheck liver parameters. Requested also duplex ultrasonography to exclude pancreatitis associated portal vein thrombosis, less likely hepatic vein thrombosis. Thickened GB wall, but could also be associated with hepatitis. Sludge. Noted mild CBD dilation on ultrasonography. No choledocholithiasis noted on MRCP. Mild CBD dilation. Pancreatic duct normal. Gallbladder wall thickening, small amount of edema adjacent to gallbladder and duodenum, extending posterior to pancreas. With reports to consider cholecystitis. No intrahepatic duct dilation. HIDA scan obtained this morning also discussed with both of them, with no excretion of bile from the liver. As per discussion with radiology, surgery, findings suggestive of hepatitis. However, also cannot entirely exclude stricture at sphincter of Oddi, although again seems less likely given normal pancreatic duct, only mild dilation of CBD. Discussed unconjugated hyperbilirubinemia and T bili with worsening today. Mild worsening of transaminitis. Stalled progress in terms of improvement of lipase. We also discussed and he is agreeable and understands that in case we are not finding given the cause of his symptoms, I and especially in case of worsening liver dysfunction, additional assessment may need to be considered, possibly at outside facility with consideration of GI assessment, possible liver biopsy, possibly ERCP not available here. Status: Acute (2) Acute pancreatitis: Stalled progress today. Lipase 1200. Continue n.p.o. No significant pancreatic inflammation noted on MRCP. No choledocholithiasis. Pancreatic duct normal. Not entirely clear etiology at this time, possibly alcohol related. No gallstones. Sludge on ultrasound. Alk phos normal. No choledocholithiasis on MRCP. Triglycerides normal. Given he still having epigastric pain, continue bowel rest for now. IV hydration. PPI. Pain, nausea control. Status: Acute Attestations Medical Necessity Statement*: Continue admission for assessment of management of acute pancreatitis, possible hepatitis, possible cholecystitis. 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
[2020-11-22 20:35] LABS: INR 1.16 (0.8-1.2)
[2020-11-22] MEDS: sennosides 8.6 mg Tablet 17.2 MG PO (22:51)
[2020-11-23] MEDS: pantoprazole 40 mg SDV IVP ×2 (00:56→12:23)
[2020-11-23] MEDS: enoxaparin 40 mg/0.4 mL Syringe SUBCUT (01:19)
[2020-11-23] MEDS: sodium chlor 0.9% + KCl 20 mEq 20 MEQ/1,000 ML BAG 150 MEQ IV ×2 (01:39→09:13)
[2020-11-23 03:30] VITALS: BP 141/80; PULSE 81; RESP 16; TEMP 37.4; O2SAT 96
[2020-11-23 05:46] LABS: Basophils # 0.1 10^3/uL (0.0-0.1); Basophils % 0.6 %; Eosinophils # 0.4 10^3/uL (0.0-0.8); Eosinophils % 5.1 %; Hematocrit 37.3 % (42.0-52.0); Lymphocytes % 11.8 %; Mean Corpuscular HGB Conc 34.9 g/dL (30.0-36.0); Mean Corpuscular Hemoglobin 29.3 pg (28.0-34.0); Mean Platelet Volume 11.5 fL (7.4-10.4); Monocytes # 1.2 10^3/uL (0.2-0.9); Monocytes % 14.2 %; Neutrophils # 5.92 10^3/uL (1.8-7.7); Neutrophils % 68.1 %; Nucleated Red Blood Cells % 0 %; Platelet Count 164 10^3/cmm (130-400); Red Blood Count 4.44 10^6/uL (4.1-5.3); Red Cell Distribution Width 11.8 % (12.1-15.1); White Blood Count 8.7 10^3/uL (4.0-10.0)
[2020-11-23 05:54] LABS: INR 1.18 (0.8-1.2)
[2020-11-23 06:01] LABS: Alanine Aminotransferase 122 U/L (0-41); Albumin Level 3.5 g/dL (3.5-5.2); Alkaline Phosphatase 91 IU/L (40-130); Anion Gap 14.3 (5-19); Aspartate Amino Transferase 38 U/L (0-40); Blood Urea Nitrogen 8 mg/dL (6-20); Calcium 8.2 mg/dL (8.5-10.5); Carbon Dioxide 24 mmol/L (22-29); Chloride 103 mmol/L (98-107); Globulin 2.6 g/dL (1.3-4.6); Glomerular Filtration Rate 176.7 mL/min (90-130); Glucose 84 mg/dL (65-115); Osmolality Calculated 282 mOsm/kg (285-295); Potassium 4.3 mmol/L (3.5-5.1); Sodium 137 mmol/L (136-145); Total Bilirubin 2.5 mg/dL (0.15-1.2); Total Protein 6.1 g/dL (6.6-8.7)
[2020-11-23 06:06] LABS: Lipase 83 U/L (13-60)
[2020-11-23 07:40] VITALS: BP 147/81; PULSE 77; RESP 18; TEMP 36.7; O2SAT 94
[2020-11-23] MEDS: docusate sodium 100 mg Capsule PO (09:13)
[2020-11-23 10:56] VITALS: BP 123/77; PULSE 77; RESP 18; TEMP 36.7; O2SAT 95
[2020-11-23] MEDS: acetaminophen 325 mg Tablet 650 MG PO (12:22)
--- NOTE | 2020-11-23 14:12 | PC.CHAP ---
Pastoral Care Encounter/Spiritual Assessment Type of Contact [] Declined sap basis architect visit [] Patient/Family/Request visit [] Outpatient visit [xx] Follow-up visit [] Physician referral [] Code/Alert [xx] Routine visit [] Staff referral [] Actively dying [] Patient sleeping [] Family support [] [] Out of room [] Palliative care [] [] Receiving care in room [] Pre-surgical visit [] Trauma [xx] Long length of stay [] ICU visit [] Other: Relational/Emotional Strength [xx] Patient feels connected with others/family/visitors/staff [] Distress [] Loneliness/isolation [] Abandonment Spirituality of Patient [] Person of Jaenie [] Attends Yarsanism of their Jeanie [xx] Believes in Prayer [] Reads Bible or Scientologist materials [] There are Spiritual issues to be addressed Dark Room Attendant Interventions [xx] Prayer [xx] Active listening [xx] Non-anxious presence [] Spiritual/emotional support [] Crisis/trauma care [] Spiritual counseling [] Bereavement support [] Provided bereavement packet [] Provided Bible/devotional materials [] Provided toy/stuffed animal, coloring book to patient or family member [] Provided Communion [] Anointing/[place] [] Salvation [xx] Completed spiritual assessment [] Other: Impact on Illness or Injury [] Angry [] Fearful [] Anxious [] Often cries [] Exhaustion [] Unable to work [] Unable to attend rastafari [] Unable to walk/stand [] Unable to read [] Unable to drive [] Unable to eat/drink [] Unable to sleep [] Unable to be with family [] Patient intubated [] Other: Summary Patient stated he is feeling better. He also stated that the doctors have made a diagnosis and have started treatment accordingly. He anticipates 2 to 3 more days in hospital. Time spent with patient 5 minutes
[2020-11-23] MEDS: cefTRIAXone 1,000 MG in sodium chloride 0.9% (plus) 50 ML 100 MG IV (14:24)
--- NOTE | 2020-11-23 15:02 | P.PN_ITS ---
Subjective Subjective: Interval history: Patient feels a lot better today, had couple of BMs denies significant abdominal pain Vitals/I&O/Wt Last Vital Signs Temp 98.0 F 11/23/20 10:56 Pulse 77 11/23/20 10:56 Resp 18 11/23/20 10:56 BP 123/77 11/23/20 10:56 Pulse Ox 95 11/23/20 10:56 11/23/20 11/23/20 11/23/20 06:59 14:59 22:59 Intake Total 1000 / 2895 1766 / 1766 Balance 1000 / 2895 1766 / 176 Physical Exam Narrative: EXAM NARRATIVE: Abdomen: Soft, nontender, nondistended Data : 11/23/20 05:24 11/23/20 05:24 Micro: Microbiology 11/20/20 21:07 Blood Culture - Preliminary Blood Corynebacterium species 11/22/20 19:54 Blood Culture - Preliminary Blood SPECIMEN COLLECTED 11/22/20 19:58 Blood Culture - Preliminary Blood SPECIMEN COLLECTED A&P Assessment and plan (1) Acute cholecystitis: 50-year-old male who presents with abdominal pain with ultrasound showing findings suggestive of acute cholecystitis.Patient has not had any problems with high fat diet in the past though he generally eats healthy. Bilirubin is down to 2.5 from 8. At this point we do not have an obvious explanation for the elevated LFTs but is improving. Hopefully patient can go home with rechecking the labs in a month. Follow-up in 4 weeks in clinic Status: Acute (2) Acute pancreatitis: Patient has a history of drinking beers on used to be heavy drinker many years ago in his younger days. No prior episodes of pancreatitis in the past. His lipase is trending down. MRCP showed mild duct dilatation but no choledocholithiasis. HIDA scan: There is no excretion from the liver Lipase today is down to 83 Status: Acute Attestations Medical Necessity Statement*: As per primary Coding Level of Care Code Acute Intramural Director for [facility] Diagnoses Acute cholecystitis K81.0 Acute pancreatitis K85.90
[2020-11-23 15:39] VITALS: BP 127/77; PULSE 69; RESP 18; TEMP 36.8; O2SAT 97
--- NOTE | 2020-11-23 17:18 | PM.DCS ---
Discharge Providers Date of Admission: 11/20/20 20:57 Date of Discharge: November 23, 2020 Attending Provider at Admission: Cathryn Harrison MD Attending Provider at Discharge: Christ Murphy Diagnoses at Discharge Discharge Diagnosis (1) Acute cholecystitis: Status: Acute (2) Acute pancreatitis: Status: Acute Reason for Visit Reason for Visit: RUQ ABD PAIN, RADIATING TO BACK Hospital Course Hospital Course 50-year-old gentleman without more significant past medical history, but with intake of alcohol of 4-6 beers up to 3-4 times a week was admitted for assessment management after presenting with abdominal pain, with finding of acute pancreatitis, with lipase of 3000, acute cholecystitis on ultrasonography with gallbladder wall thickening, mild hyperemia and intraluminal sludge, sonographic Swenson sign positive, borderline mild dilation of CBD at 6 mm. No choledocholithiasis was seen on MRCP. MRCP suggested possibility of cholecystitis. Again noted mildly dilated CBD. Mild gallbladder wall thickening, small amount of edema adjacent to gallbladder and duodenum. No intrahepatic duct dilation. He was empirically treated with Rocephin, assessed by surgery. Maintained on bowel rest. Pain and nausea control. IV hydration. Pancreatitis initially with improvement, with some improvement in pain, however, then persisted with lipase stabilized around 1200. Alcohol induced pancreatitis thought a possible cause. Triglycerides were normal. With HIDA scan equivocal, suggestive of picture of possible hepatitis, with no excretion from the liver, although high-grade CBD obstruction could not be excluded with possibility of something like sphincter of Oddi stricture/dysfunction. Although again pancreatic ducts were not dilated. The picture is not clear. This was discussed in detail with him and his . We assessed him additionally for viral hepatitis, with acute hepatitis panel negative. Autoimmune studies for autoimmune hepatitis were sent. His T bili antwan on second day and subsequently up to as high as 8. Predominantly unconjugated bilirubin. LDH with mild elevation, haptoglobin normal, not suggestive of hemolysis. AST and ALT with rise up to as high as 98 and 181 respectively. Alk phos remains normal. GGT elevated at 242. Ferritin with moderate elevation 872, although unclear if acute phase reactant or possibly related to alcohol intake. Will need to be followed up to exclude persistent elevation of parameters. Possibility of alcohol induced hepatitis. However, other causes will need to be considered in case of persistent abnormality. At least at this time MRCP did not appear to suggest appearance of PSC, PBC. In the setting of pancreatitis he was also assessed by duplex of portal vein, hepatic veins, without thrombus identified. No IVC thrombus. Not all areas were clearly visualized. Please follow-up liver parameters, obtain additional assessment and referral as appropriate. As per his discussion with surgery, acute cholecystitis was discussed with possibility of cholecystectomy considered. He is rather reluctant to pursue surgery at the current time, and with unclear picture with regards to lab studies and imaging, as well as with very rapid improvement today, with bilirubin decreased to 2.5, normalization of AST to 38, decrease in ALT to 122, persistently normal alk phos, and resolution of pancreatitis, lipase decreased to 83, improvement in symptoms, tolerating oral diet, heat and surgery decided to defer any additional invasive intervention for now. Upon following liver parameters, in case of persistent abnormality, or in case of return of abdominal symptoms, consider referral to gastroenterology for additional evaluation, possibly consideration of EUS to exclude CBD stricture, assessment of possible sphincter of Oddi dysfunction, or alternatively assessment of other causes of possible hepatitis, although with this rapid improvement hepatitis appears perhaps less likely. Currently he is feeling much better. Tolerating oral intake, and wanting to return home, continuing outpatient follow-up. Physical Exam Const: COMMON NORMALS: no acute distress and patient oriented x3 OTHER: Sitting up in chair. Comfortable. Just had oral liquids. HENMT: COMMON NORMALS: oropharynx normal Neck/C-Spine: COMMON NORMALS: no JVD Resp: COMMON NORMALS: normal respiratory effort and clear to auscultation bilaterally AUSCULTATION: clear to auscultation bilaterally Cardio: COMMON NORMALS: no JVD, regular rhythm, S1 normal heart sound present, S2 normal heart sound present and No murmurs present (Cardio) RHYTHM: regular rhythm HEART SOUNDS: S1 normal heart sound present and S2 normal heart sound present GI: COMMON NORMALS: Normal to inspection, nondistended, normoactive bowel sounds present, Soft to palpation and non-tender PALPATION: Yes Soft to palpation Extremity: COMMON NORMALS: no joint enlargement and no pedal edema Neuro: COMMON NORMALS: patient oriented x3 and moves all extremities Skin: COMMON NORMALS: no rashes or lesions noted GENERAL SKIN EXAM: no rashes or lesions noted Discharge Data Data Completed and Pending: Completed Studies During Hospitalization Category Date Time Status MR MRCP 67343 Sta t MRI 11/21/20 10:53 Completed NM hepatobiliary wo phar [id number] Rout ine Nuc Med 11/22/20 17:32 Completed CV duplex IVC 939 [id number] Stat Ultrasound 11/23/20 18:31 Completed [place] abdomen limite d [id number] Stat Ultrasound 11/20/20 17:36 Completed Pending at discharge Category Date Time Status PIERCE Screen w/ Ref dinesh Routine Lab 11/22/20 05:55 Received Blood Culture Sta t Lab 11/20/20 21:07 Results Blood Culture Sta t Lab 11/22/20 19:54 Results Complete Blood Co unt w/Auto AM LABS Lab 11/24/20 04:00 Ordered Comprehensive Met abolic Panel AM LA BS Lab 11/24/20 04:00 Ordered Lipase AM LABS Lab 11/24/20 04:00 Ordered Mitochondrial AB Screen Routine Lab 11/22/20 05:55 Received Labs from last 24 hours 11/23/20 11/23/20 11/23/20 05:24 05:24 05:24 WBC 8.7 RBC 4.44 Hgb 13.0 Hct 37.3 L MCV 84.0 MCH 29.3 MCHC 34.9 RDW 11.8 L Plt Count 164 MPV 11.5 H Neut % (Auto) 68.1 Lymph % (Auto) 11.8 [place] % (Auto) 14.2 Eos % (Auto) 5.1 Baso % (Auto) 0.6 Neut # (Auto) 5.92 Lymph # (Auto) 1.0 [place] # (Auto) 1.2 H Eos # (Auto) 0.4 Baso # (Auto) 0.1 Nucleated RBC % (a uto) 0 Nucleated RBCs # 0.0 Haptoglobin PT 15.40 H INR 1.18 Sodium 137 Potassium 4.3 Chloride 103 Carbon Dioxide 24 Anion Gap 14.3 BUN 8 Creatinine 0.5 L GFR Calculation 176.7 H Glucose 84 Calculated Osmolal ity 282 L Calcium 8.2 L Ferritin Total Bilirubin 2.5 H AST 38 ALT 122 H Alkaline Phosphata se 91 Lactate Dehydrogen ase Total Protein 6.1 L Albumin 3.5 Globulin 2.6 Lipase 11/23/20 11/22/20 11/22/20 05:24 19:54 05:55 WBC RBC Hgb Hct MCV MCH MCHC RDW Plt Count MPV Neut % (Auto) Lymph % (Auto) [place] % (Auto) Eos % (Auto) Baso % (Auto) Neut # (Auto) Lymph # (Auto) [place] # (Auto) Eos # (Auto) Baso # (Auto) Nucleated RBC % (a uto) Nucleated RBCs # Haptoglobin 177.0 PT 15.10 H INR 1.16 Sodium Potassium Chloride Carbon Dioxide Anion Gap BUN Creatinine GFR Calculation Glucose Calculated Osmolal ity Calcium Ferritin 872 H Total Bilirubin AST ALT Alkaline Phosphata se Lactate Dehydrogen ase 318 H Total Protein Albumin Globulin Lipase 83 H Vitals: Last Vital Signs Temp 98.2 F 11/23/20 15:39 Pulse 69 11/23/20 15:39 Resp 18 11/23/20 15:39 BP 127/77 11/23/20 15:39 Pulse Ox 97 11/23/20 15:39 Discharge Plan Discharge Patient Disposition: Home Condition: Stable Prescriptions: New pantoprazole 40 mg tablet,delayed release (DR/EC) 40 mg PO BID 42 Days Qty: 84 RF: 0 cefdinir 300 mg capsule 300 mg PO BID 5 Days Qty: 10 RF: 0 Continued One A Day Vitamin 1 tab PO DAILY RF: 0 Discharge Orders: Discharge Order (Routine); Ordered 11/23/20 Ordered By: Christ Murphy Referrals: Jv Howe MD [Physician] - 1 month (Please call [facility] [place] [facility] on Thursday to schedule an appointment to be seen in one month.) Deb Cox FNP [Non-Staff] - 11/30/20 11:20 am (November 30 @ 1120, bring insurance card and I.D. please) Discharge Diet: Advance as tolerated and Full LIquid Discharge Activity: Increase activity as tolerated Patient Instructions: Cefdinir (By mouth), Pantoprazole (By mouth), Cholecystitis (DC), Pancreatitis (DC), Opioid Safety Activity Restrictions/Additional Instructions: Avoid any alcohol, even small amounts, alcohol may trigger acute pancreatitis. Please follow-up with your primary doctor and have them recheck your liver parameters, lipase. In case liver parameters remain abnormal, or you have any persistent abdominal pain, please discuss earlier referral to surgery, or consideration of referral to gastroenterology specialist for additional evaluation of noted abnormalities, consideration of endoscopic ultrasound to exclude strictures of sphincter of Oddi. Look for additional causes of possible hepatitis. Please have your primary doctor follow-up results of autoimmune studies obtained in the hospital which will take at least several days to come back. In the absence of any other symptoms, follow-up with surgery in 1 month to discuss consideration of cholecystectomy. Discharge Attestations Time Spent in Discharge Care*: greater than 30 min Quality Metrics Clinical Quality Measures During this hospital stay, did patient experience: None Coding Level of Care Code Acute Chg FW DC note Diagnoses Acute cholecystitis K81.0 Acute pancreatitis K85.90
--- NOTE | 2020-11-23 18:31 | USCV_ITS ---
Mic Mueller Age: 50 Gender: M : 1970 Exam Date: 11/23/2020 06:38 Ordering Phys: Christ Murphy MD Technologist: Jose Bunn Exam Location: [facility] [place] Indication: ? PORTAL OR IVC THROMBUS Findings NO THROMBUS IN THE SPLENIC, IVC , HEPATIC OR PORTAL veins. Conclusions No thrombus is identified in the splenic, portal or hepatic veins. No IVC thrombus. Not all areas are readily seen. Cannot exclude partial DVT in any of the above veins. Dr. Judy Queen DO (Electronically Signed) Final Date: 23 November 2020 09:09 S
[2020-11-23 19:11] VITALS: BP 127/77; PULSE 69; RESP 18; TEMP 36.8; O2SAT 97
[2020-11-26 16:18] LABS: Anti-Nuclear Antibody Screen POSITIVE (NEGATIVE)
== END 2020-11-23 19:11 | disposition home or self-care (01) | DRG 440 ==
LOC: ER 20:57 → MEDSURG 23:05
PROVIDERS: Admitting Provider Hospitalist; Emergency Provider Emergency Medicine; Visit Provider Internal Medicine
DX: K85.20 Alcohol induced acute pancreatitis without necrosis or infection (principal); Z81.1 Family history of alcohol abuse and dependence; Z87.891 Personal history of nicotine dependence; F10.10 Alcohol abuse, uncomplicated; K70.10 Alcoholic hepatitis without ascites
CPT/HCPCS: 36415; 74181; 76705; 78226; 78227; 80053; 80061; 80074; 80307; 81001; 82248; 82728; 82977; 83010; 83036; 83516; 83605; 83615; 83690; 83735; 84100; 85025; 85610; 86038; 87040; 87205; 93978; 96361; 96365; 96372; 96375; 99285; A9537; C9113; J0696; J1650; J1885; J2270; J2405; J2543; J3411; J3490; J7030